=== PATIENT | female | born 1990 | race Caucasian/White ===

== ENCOUNTER 2017-11-03 09:28 | Emergency (ER) | payer MEDICAID ==
[2017-11-03 09:35] VITALS: BP 120/64
[2017-11-03] MEDS ORDERED: NORMAL SALINE 1000 ML 1,000 ML IV ONE (09:46)
--- NOTE | 2017-11-03 09:50 | ER Document Report ---
ED Medical Screen (RME) - General Chief Complaint: Anxiety Stated Complaint: NAUSEA,VOMITING,DIARRHEA Time Seen by Provider: 11/03/17 09:46 Mode of Arrival: Ambulatory Information source: Patient TRAVEL OUTSIDE OF THE U[place] IN LAST 30 DAYS: No - HPI Patient complains to provider of: anxiety, CP Onset: Other - pt states she has been having CP, anxiety, N/V/D for the past several days - Related Data Allergies/Adverse Reactions: No Known Allergies Allergy (Verified 11/03/17 09:29) Past Medical History Psychiatric Medical History: Reports: Hx Anxiety - on meds, Hx Depression - on meds - Immunizations Hx Diphtheria, Pertussis, Tetanus Vaccination: Yes - 07/2015 Physical Exam - Vital signs Vitals: Temp Pulse Resp BP Pulse Ox 98.9 F 78 20 120/64 100 11/03/17 09:34 11/03/17 09:34 11/03/17 09:34 11/03/17 09:34 11/03/17 09:34 Course - Vital Signs Vital signs: Temp Pulse Resp BP Pulse Ox 98.9 F 78 20 120/64 100 11/03/17 09:34 11/03/17 09:34 11/03/17 09:34 11/03/17 09:34 11/03/17 09:34 Doctor's Discharge - Discharge Instructions: Anxiety ([facility])
[2017-11-03 10:39] LABS: APPEARANCE,URINE SLIGHTLY-CLOUDY; BILIRUBIN,URINE NEGATIVE (NEGATIVE); COLOR,URINE YELLOW; GLUCOSE, URINE NEGATIVE (NEGATIVE); KETONES,URINE TRACE mg/dL (NEGATIVE); LEUKOCYTE ESTERASE,URINE SMALL (NEGATIVE); NITRITE,URINE NEGATIVE (NEGATIVE); PROTEIN,URINE NEGATIVE (NEGATIVE); URINE SPECIFIC GRAVITY 1.009; UROBILINOGEN,URINE NEGATIVE mg/dL (<2.0)
[2017-11-03 11:15] LABS: ABSOLUTE BASOPHILS # (AUTO) 0.1 10^3/uL (0.0-0.2); ABSOLUTE LYMPHOCYTES (AUTO) 2.1 10^3/uL (0.5-4.7); ABSOLUTE MONOCYTES (AUTO) 0.6 10^3/uL (0.1-1.4); ABSOLUTE NEUT (AUTO) 8.1 10^3/uL (1.7-8.2); BASOPHILS % (AUTO) 0.5 % (0-2); EOSINOPHILS % (AUTO) 0.1 % (0-6); HEMATOCRIT 40.6 % (36.0-47.0); HEMOGLOBIN 13.7 g/dL (12.0-15.5); LYMPHOCYTES % (AUTO) 19.6 % (13-45); MEAN CORPUSCULAR HGB CONC 33.8 g/dL (32.0-36.0); MEAN CORPUSCULAR VOLUME 95 fl (80-97); MONOCYTES % (AUTO) 5.5 % (3-13); PLATELET COUNT 171 10^3/uL (150-450); RED BLOOD COUNT 4.29 10^6/uL (3.72-5.28); RED CELL DISTRIBUTION WIDTH 12.7 % (11.5-14.0); SEGMENTED NEUTROPHILS % (AUTO) 74.3 % (42-78); TOTAL CELLS COUNTED % (AUTO) 100 %; WHITE BLOOD COUNT 10.8 10^3/uL (4.0-10.5)
[2017-11-03 11:41] LABS: ALANINE AMINOTRANSFERASE 30 U/L (9-52); ALBUMIN 4.8 g/dL (3.5-5.0); ALKALINE PHOSPHATASE 65 U/L (38-126); ANION GAP 10 (5-19); ASPARTATE AMINO TRANSFERASE 23 U/L (14-36); BILIRUBIN,DIRECT 0.3 mg/dL (0.0-0.4); BILIRUBIN,TOTAL 0.5 mg/dL (0.2-1.3); BLOOD UREA NITROGEN 6 mg/dL (7-20); CALCIUM 10.2 mg/dL (8.4-10.2); CARBON DIOXIDE 25 mmol/L (22-30); CHLORIDE 107 mmol/L (98-107); CREATINE KINASE 46 U/L (30-135); CREATINE KINASE MB < 0.22 ng/mL (<4.55); GLUCOSE 86 mg/dL (75-110); POTASSIUM 3.9 mmol/L (3.6-5.0); SODIUM 142.4 mmol/L (137-145); TROPONIN I < 0.012 ng/mL
[2017-11-03] MEDS ORDERED: CLONAZEPAM 1 MG TABLET PO ONE (13:27)
--- NOTE | 2017-11-03 13:29 | ER Document Report ---
ED General <CAMILA SPAULDING - Last Filed: 11/03/17 17:01> - General Mode of Arrival: Ambulatory Information source: Patient, Relative TRAVEL OUTSIDE OF THE [place].S. IN LAST 30 DAYS: No <AISSATOUMAYELIN - Last Filed: 11/03/17 17:24> - General Chief Complaint: Anxiety Stated Complaint: NAUSEA,VOMITING,DIARRHEA Time Seen by Provider: 11/03/17 09:46 - HPI Notes: 27-year-old female with a history of anxiety and depression presents today with complaints of chest pain, shortness of breath, insomnia, anorexia over the last 2 nights. Patient recently took herself off Lexapro approximately 4 weeks ago. Patient also stopped taking her tramadol. Patient is managed by Dr. Shermna, psychiatrist, patient states she has not been seen by him for approximately 6 months. Patient states she has been taking her Klonopin, has been refilling prescription that Dr. Sherman gave her to manage some of her anxiety. Denies any dizziness, lightheadedness, blurred vision, double vision, loss of vision. Denies any vomiting, diarrhea. Denies any pelvic or vaginal pain. Denies any fevers or chills. Patient stopped taking her Lexapro because she "wanted to stop regulating my life around pills". Denies any homicidal or suicidal ideation. Patient states she is unable to get into psychiatry for another month and a half. Denies any acute stressors in life. Non-smoker. Denies any illicit drug use. Patient denies drinking at this time. (MAYELIN REYEZ) - Related Data Allergies/Adverse Reactions: No Known Allergies Allergy (Verified 11/03/17 09:29) Past Medical History - General Information source: Patient - Social History Smoking Status: Former Smoker Frequency of alcohol use: None Drug Abuse: None Family History: None, Reviewed & Not Pertinent Patient has suicidal ideation: No - Pt states she has been having thoughts but does not want to kill herself Patient has homicidal ideation: No Renal/ Medical History: Denies: Hx Peritoneal Dialysis Psychiatric Medical History: Reports: Hx Anxiety - on meds, Hx Depression - - Immunizations Hx Diphtheria, Pertussis, Tetanus Vaccination: Yes - 07/2015 <MAYELIN REYEZ - Last Filed: 11/03/17 17:24> Review of Systems - Review of Systems Constitutional: No symptoms reported EENT: No symptoms reported Cardiovascular: See HPI Respiratory: No symptoms reported Gastrointestinal: No symptoms reported Genitourinary: No symptoms reported Female Genitourinary: No symptoms reported Musculoskeletal: No symptoms reported Skin: No symptoms reported Hematologic/Lymphatic: No symptoms reported Neurological/Psychological: See HPI <MAYELIN REYEZ - Last Filed: 11/03/17 17:24> Physical Exam <SPAULDINGCAMILA - Last Filed: 11/03/17 17:01> - Vital signs Interpretation: Normal <MAYELIN REYEZ - Last Filed: 11/03/17 17:24> - Vital signs Vitals: Temp Pulse Resp BP Pulse Ox 98.9 F 78 20 120/64 100 11/03/17 09:34 11/03/17 09:34 11/03/17 09:34 11/03/17 09:34 11/03/17 09:34 - Notes Notes: PHYSICAL EXAMINATION: GENERAL: Well-appearing, well-nourished and in no acute distress. HEAD: Atraumatic, normocephalic. EYES: Pupils equal round and reactive to light, extraocular movements intact, conjunctiva are normal. ENT: Nares patent, oropharynx clear without exudates. Moist mucous membranes. NECK: Normal range of motion, supple without lymphadenopathy LUNGS: Breath sounds clear to auscultation bilaterally and equal. No wheezes rales or rhonchi. HEART: Regular rate and rhythm without murmurs ABDOMEN: Soft, nontender, nondistended abdomen. No guarding, no rebound. No masses appreciated. Female : deferred Musculoskeletal: Normal range of motion, no pitting or edema. No cyanosis. NEUROLOGICAL: Cranial nerves grossly intact. Normal speech, normal gait. Normal sensory, motor exams PSYCH: Normal mood, normal affect. SKIN: Warm, Dry, normal turgor, no rashes or lesions noted. (MAYELIN REYEZ) Course - Laboratory Result Diagrams: 11/03/17 10:58 11/03/17 10:58 <SPAULDINGCAMILA - Last Filed: 11/03/17 17:01> - Laboratory Result Diagrams: 11/03/17 10:58 11/03/17 10:58 <AISSATOUMAYELIN DAN Yves - Last Filed: 11/03/17 17:24> - Re-evaluation Re-evalutation: 11/03/17 17:21 Laboratory findings were unremarkable, EKG shows non-STEMI. Chest x-ray negative for any acute findings. Will send urine for culture, urinalysis shows slight leukocytosis. Boy Spaulding, with mental health team, at bedside to speak with patient. Boy was able to speak with Dr. Son, psychiatrist on- call, to discuss case. Behavioral health team recommended changing patient to BuSpar 10 mg twice daily and Celexa 20 mg every day. Discussed this with patient, she states she is okay taking his medication. Advised her that she needs to follow-up with [facility] which is the walk-in center for mental health services. Patient feels that she is stable on a can of to go home. All questions and concerns were answered by this provider. Advised to return to the emergency room if symptoms become worse. Patient advised to stop taking tramadol as well as Klonopin while taking these new medications. Patient verbalized understanding and agreed with plan of care. Patient was discharged home. (MAYELIN REYEZ) - Vital Signs Vital signs: Temp Pulse Resp BP Pulse Ox 98.9 F 78 20 120/64 100 11/03/17 09:34 11/03/17 09:34 11/03/17 09:34 11/03/17 09:34 11/03/17 09:34 - Laboratory Laboratory results interpreted by me: 11/03/17 11/03/17 11/03/17 10:10 10:58 10:58 WBC 10.8 H BUN 6 L Urine Ketones TRACE H Urine Blood LARGE H Ur Leukocyte Esterase SMALL H Discharge <CAMILA SPAULDING - Last Filed: 11/03/17 17:01> <MAYELIN REYEZ - Last Filed: 11/03/17 17:24> - Discharge Clinical Impression: Anxiety Condition: Good Disposition: HOME, SELF-CARE Instructions: Anxiety ([facility]) Additional Instructions: Anxiety The physician feels that some of your health problems are being caused by anxiety. Anxiety affects your health in many ways. Anxiety alone can cause palpitations, sweats, chest pains, abdominal pains, shortness of breath, and headaches. It contributes to ulcer disease, high blood pressure, irritable bowel syndrome, and has been shown to cause flare-ups of many other diseases. Anxiety is not a simple disorder to treat. If the anxiety is due to recent life stresses, you may simply need time to "work through" the changes. If the anxiety is due to an underlying unhappiness with yourself or due to psychiatric disturbance, professional help will be needed. Your physician can refer you for further help if needed. Anti-anxiety medication is occasionally given if the stress is acute or if you are having trouble sleeping. Chronic or frequent use of these medications is not a good idea because the body becomes reliant on it, preventing you from dealing with life's normal stresses. You have been prescribed medications as follows Celexa 20 mg daily BuSpar 10 mg twice daily Please take as prescribed. AT ANY TIME, IF YOUR SYMPTOMS CHANGE SIGNIFICANTLY OR WORSEN OR YOU DEVELOP NEW SYMPTOMS, RETURN TO THE EMERGENCY DEPARTMENT IMMEDIATELY FOR RE-EVALUATION. Prescriptions: Buspirone HCl [Buspar 10 mg Tablet] 10 mg PO BID #20 tablet Citalopram Hydrobromide [Celexa 20 mg Tablet] 20 mg PO DAILY #10 tablet Referrals: [facility] [Outside] - 11/04/17 8:00 am
--- NOTE | 2017-11-03 15:57 | PSYCHOLOGICAL NOTE ---
Psych Note - Psych Note Psych Note: Reason for consult: anxiety Consent permissions: significant other at bedside per patient request patient reports she was recently diagnosed with post depression and has been taking several medications for diagnosis. states last taken medication last week. reports has had several panic attacks with feelings of shortness of breath. states has also felt nauseated. Patient disclosed that she stopped taking her lexapro in September and her Tramadol last Wednesday (10/26/2017). She reports increase in anxiety, depression and insomnia. Patient states that she has not been eating and feels sick to her stomach all the time. Patient denies any increase in psychosocial stressors. Patient's outpatient provider is Dr. Sherman with [facility]. Patient denies any inpatient psychiatric treatment. Patient disclosed that she was concerned she was taking her tramadol to much (3-4 times a day instead of 1-2 times a day) and wants to stop taking any addictive medications. Patient is alert and orientated to person, place, time and circumstance. Mood is anxious with psychomotor agitation and tearful affect. Patient denies suicidal and homicidal ideation. Delusions are absent behaviors congruent with intact reality based presentation i.e. organized, linear, rational thinking. Eye contact was well-maintained. Conversational speech was within normal rate, tone and prosody. Intellectual abilities appear to be within the average range. Attention and concentration are fair. Insight, judgment, impulse control are good. Behavior health team contacted [facility]. Patient is established with that provider; however, once a year patients must see a therapist. Patient is coming up on her yearly review which requires this visit with a therapist. After patient completes that she will be able to see Dr. Sherman. 311 (F32.9) unspecified depressive disorder per history provided by patient 300.00 (F41.9) unspecified anxiety disorder per history provided by patient Impression\plan: Patient is considered psychiatrically clear. Patient does not meet IVC criteria per [place] GS 122C. Patient arrived to [facility] ED for assistance with anxiety. Patient attempted to stop taking her medications because of concerns of using her tramadol too much. Patient is visibly anxious with psychomotor agitation and tearful affect. Clinician engaged patient in deep breathing and visualization exercises. Patient is recommended to continue services with outpatient mental health provider, [facility]. Patient and clinician discussed outpatient procedure with [facility] incorporating seeing a therapist once a year which is being requested of the patient currently before she can see Dr. Sherman. Behavioral health team provided recommendations for medications to assist the patient in not taking any controlled substances per patient's request. Patient states she is unsure which PCM she has been assigned now that [facility] with [facility] but states she will look into that.
== END 2017-11-03 17:10 | disposition home or self-care (01) ==
LOC: ER 09:28
DX: F41.9 Anxiety disorder, unspecified (principal); T43.226A Underdosing of selective serotonin reuptake inhibitors, initial encounter; Z91.128 Patient's intentional underdosing of medication regimen for other reason; Z91.14 Patient's other noncompliance with medication regimen; R07.9 Chest pain, unspecified; R06.02 Shortness of breath; R63.0 Anorexia; G47.00 Insomnia, unspecified; Z79.899 Other long term (current) drug therapy; Z87.891 Personal history of nicotine dependence
CPT/HCPCS: 99284; 96360; 36415; 82553; 82550; 85025; 81025; 80053; 81001; 84484; J3490; J7030

== ENCOUNTER 2017-11-21 08:03 | Emergency (ER) | payer MEDICAID ==
[2017-11-21 09:26] LABS: ABSOLUTE LYMPHOCYTES (AUTO) 1.5 10^3/uL (0.5-4.7); ABSOLUTE MONOCYTES (AUTO) 0.7 10^3/uL (0.1-1.4); ABSOLUTE NEUT (AUTO) 9.6 10^3/uL (1.7-8.2); BASOPHILS % (AUTO) 0.2 % (0-2); EOSINOPHILS % (AUTO) 0.3 % (0-6); HEMATOCRIT 43.3 % (36.0-47.0); HEMOGLOBIN 14.6 g/dL (12.0-15.5); LYMPHOCYTES % (AUTO) 12.7 % (13-45); MEAN CORPUSCULAR HEMOGLOBIN 32.9 pg (27.0-33.4); MEAN CORPUSCULAR HGB CONC 33.7 g/dL (32.0-36.0); MEAN CORPUSCULAR VOLUME 98 fl (80-97); MONOCYTES % (AUTO) 6.2 % (3-13); PLATELET COUNT 161 10^3/uL (150-450); RED BLOOD COUNT 4.44 10^6/uL (3.72-5.28); RED CELL DISTRIBUTION WIDTH 13.3 % (11.5-14.0); SEGMENTED NEUTROPHILS % (AUTO) 80.6 % (42-78); TOTAL CELLS COUNTED % (AUTO) 100 %; WHITE BLOOD COUNT 11.8 10^3/uL (4.0-10.5)
[2017-11-21 09:29] LABS: APPEARANCE,URINE CLEAR; BILIRUBIN,URINE NEGATIVE (NEGATIVE); COLOR,URINE STRAW; GLUCOSE, URINE NEGATIVE (NEGATIVE); KETONES,URINE NEGATIVE (NEGATIVE); LEUKOCYTE ESTERASE,URINE NEGATIVE (NEGATIVE); NITRITE,URINE NEGATIVE (NEGATIVE); PROTEIN,URINE NEGATIVE (NEGATIVE); URINE SPECIFIC GRAVITY 1.002; UROBILINOGEN,URINE NEGATIVE mg/dL (<2.0)
[2017-11-21 09:37] LABS: URINE AMPHETAMINES SCREEN NEGATIVE; URINE BARBITURATES SCREEN NEGATIVE; URINE BENZODIAZEPINES SCREEN NEGATIVE; URINE COCAINE SCREEN NEGATIVE; URINE MARIJUANA (THC) SCREEN NEGATIVE; URINE METHADONE SCREEN NEGATIVE; URINE PHENCYCLIDINE SCREEN NEGATIVE
[2017-11-21 09:46] LABS: ALANINE AMINOTRANSFERASE 35 U/L (9-52); ALBUMIN 4.9 g/dL (3.5-5.0); ALKALINE PHOSPHATASE 62 U/L (38-126); ANION GAP 13 (5-19); ASPARTATE AMINO TRANSFERASE 21 U/L (14-36); BILIRUBIN,DIRECT 0.3 mg/dL (0.0-0.4); BILIRUBIN,TOTAL 0.6 mg/dL (0.2-1.3); BLOOD UREA NITROGEN 9 mg/dL (7-20); CALCIUM 10.1 mg/dL (8.4-10.2); CARBON DIOXIDE 27 mmol/L (22-30); CHLORIDE 104 mmol/L (98-107); GLUCOSE 94 mg/dL (75-110); POTASSIUM 3.8 mmol/L (3.6-5.0); TOTAL PROTEIN 8.1 g/dL (6.3-8.2)
[2017-11-21 10:14] LABS: FREE T4 (FREE THYROXINE) 1.3 ng/dL (0.78-2.19)
[2017-11-21 10:28] LABS: THYROID STIMULATING HORMONE 0.32 uIU/mL (0.47-4.68)
--- NOTE | 2017-11-21 11:41 | ER Document Report ---
ED General <BJORN NICHOLS - Last Filed: 11/21/17 12:01> - General TRAVEL OUTSIDE OF THE [place] IN LAST 30 DAYS: No - HPI Patient complains to provider of: Anxiety <OLIVIA LIEBERMAN - Last Filed: 11/21/17 14:04> - General Chief Complaint: Psych Problem Stated Complaint: ANXIETY Time Seen by Provider: 11/21/17 08:53 - HPI Notes: Patient with a history of PTSD anxiety and depression recently discharged from [facility]. Patient states was started on 6 new psychiatric medications however at this time did not seem to be controlling her anxiety. Patient states he does have a history of anxiety and past being on multiple medication regimens. Patient states she was on Ativan at [facility] 2 mg however was discharged home on 1 mg. Patient states she does not think this is helping. Patient also states one time she was on tramadol for anxiety however became addicted to that medication. Patient otherwise denies any HI or SI. Patient is tearful upon my evaluation. (OLIVIA LIEBERMAN) - Related Data Allergies/Adverse Reactions: No Known Allergies Allergy (Verified 11/21/17 08:07) Past Medical History - Social History Smoking Status: Unknown if Ever Smoked Frequency of alcohol use: None Drug Abuse: None Family History: None, Reviewed & Not Pertinent Patient has suicidal ideation: No Patient has homicidal ideation: No Renal/ Medical History: Denies: Hx Peritoneal Dialysis Psychiatric Medical History: Reports: Hx Anxiety - on meds, Hx Depression - , anxiety, PTSD - Immunizations Hx Diphtheria, Pertussis, Tetanus Vaccination: Yes - 07/2015 <OLIVIA LIEBERMAN - Last Filed: 11/21/17 14:04> Review of Systems - Review of Systems Constitutional: No symptoms reported EENT: No symptoms reported Cardiovascular: No symptoms reported Respiratory: No symptoms reported Gastrointestinal: No symptoms reported Genitourinary: No symptoms reported Female Genitourinary: No symptoms reported Musculoskeletal: No symptoms reported Skin: No symptoms reported Hematologic/Lymphatic: No symptoms reported Neurological/Psychological: Anxiety -: Yes All other systems reviewed and negative <OLIVIA LIEBERMAN - Last Filed: 11/21/17 14:04> Physical Exam - Vital signs Interpretation: Normal - General General appearance: Appears well, Alert - HEENT Head: Normocephalic, Atraumatic Eyes: Normal Pupils: PERRL - Respiratory Respiratory status: No respiratory distress Chest status: Nontender Breath sounds: Normal Chest palpation: Normal - Cardiovascular Rhythm: Regular Heart sounds: Normal auscultation Murmur: No - Abdominal Inspection: Normal Distension: No distension Bowel sounds: Normal Tenderness: Nontender Organomegaly: No organomegaly - Back Back: Normal, Nontender - Extremities General upper extremity: Normal inspection, Nontender, Normal color, Normal ROM , Normal temperature General lower extremity: Normal inspection, Nontender, Normal color, Normal ROM , Normal temperature, Normal weight bearing. No: Sara's sign - Neurological Neuro grossly intact: Yes Cognition: Normal Orientation: AAOx4 Katherine Coma Scale Eye Opening: Spontaneous Katherine Coma Scale Verbal: Oriented Katherine Coma Scale Motor: Obeys Commands [place] Coma Scale Total: 15 Speech: Normal Motor strength normal: LUE, RUE, LLE, RLE Sensory: Normal - Psychological Associated symptoms: Anxious, Tearful - Skin Skin Temperature: Warm Skin Moisture: Dry Skin Color: Normal <OLIVIA LIEBERMAN - Last Filed: 11/21/17 14:04> - Vital signs Vitals: Temp Pulse Resp BP Pulse Ox 98.8 F 107 H 22 H 134/85 H 100 11/21/17 08:07 11/21/17 08:07 11/21/17 08:07 11/21/17 08:07 11/21/17 08:07 Course - Laboratory Result Diagrams: 11/21/17 09:10 11/21/17 09:10 <BJORN NICHOLS - Last Filed: 11/21/17 12:01> - Laboratory Result Diagrams: 11/21/17 09:10 11/21/17 09:10 <OLIVIA LIEBERMAN - Last Filed: 11/21/17 14:04> - Re-evaluation Re-evalutation: 11/21/17 14:03 Patient was slightly low TSH. Otherwise laboratory values not reveal any critical etiology. Reviewed by mental health team recommending changes to her medications stopping Ativan gabapentin. I will put the patient on her Effexor twice daily and BuSpar twice daily. Patient has an appointment follow-up with [facility] psychiatric services tomorrow. Patient was encouraged to keep this appointment. Otherwise looks stable for discharge. (OLIVIA LIEBERMAN) - Vital Signs Vital signs: Temp Pulse Resp BP Pulse Ox 99.2 F 96 16 114/74 99 11/21/17 12:36 11/21/17 12:36 11/21/17 12:36 11/21/17 12:36 11/21/17 12:36 - Laboratory Laboratory results interpreted by me: 11/21/17 11/21/17 11/21/17 08:12 09:10 09:10 WBC 11.8 H MCV 98 H Seg Neutrophils % 80.6 H Lymphocytes % 12.7 L Absolute Neutrophils 9.6 H TSH 0.32 L Urine Blood SMALL H Discharge <BJORN NICHOLS - Last Filed: 11/21/17 12:01> <LUISANAOLIVIA SOTOMAYOR - Last Filed: 11/21/17 14:04> - Discharge Clinical Impression: Anxiety Condition: Stable Disposition: HOME, SELF-CARE Additional Instructions: Anxiety The physician feels that some of your health problems are being caused by anxiety. Anxiety affects your health in many ways. Anxiety alone can cause palpitations, sweats, chest pains, abdominal pains, shortness of breath, and headaches. It contributes to ulcer disease, high blood pressure, irritable bowel syndrome, and has been shown to cause flare-ups of many other diseases. Anxiety is not a simple disorder to treat. If the anxiety is due to recent life stresses, you may simply need time to "work through" the changes. If the anxiety is due to an underlying unhappiness with yourself or due to psychiatric disturbance, professional help will be needed. Your physician can refer you for further help if needed. Anti-anxiety medication is occasionally given if the stress is acute or if you are having trouble sleeping. Chronic or frequent use of these medications is not a good idea because the body becomes reliant on it, preventing you from dealing with life's normal stresses. Follow-up: You have been provided scripts and medication adjustments. Please stop your Ativan and gabapentin and Ambien. You should adhere to these as directed until seen by an outpatient medication provider.. You should contact Leticia from [facility] upon discharge since they are involved with your care. You should follow- up with [facility] as a walk in tomorrow in order to re-establish services and care. If your symptoms persist or worsen you should consult with your physician, return to the emergency department or contact [facility]. Your thyroid-stimulating hormone was slightly low today. Do not think he needs treatment at this time but will discuss this with primary care physician. Prescriptions: Buspirone HCl [Buspar 10 mg Tablet] 10 mg PO BID #20 tab Venlafaxine HCl ER [Effexor Xr 37.5 mg Cap.sr] 37.5 mg PO BID #20 cap.sr.24h Referrals: RAGHAVENDRA LEONG MD [Primary Care Provider] - Follow up as needed [facility] [Outside] - 11/21/17 12:30 pm [facility] [Outside] - 11/22/17 8:00 am
[2017-11-21] MEDS ORDERED: VENLAFAXINE HCL 37.5 MG CAP.SR.24H PO ONE (11:43)
[2017-11-21] MEDS ORDERED: BUSPIRONE HCL 10 MG TABLET PO ONE (11:57)
[2017-11-21 12:39] VITALS: BP 114/74
--- NOTE | 2017-11-21 17:09 | PSYCHOLOGICAL NOTE ---
Psych Note - Psych Note Psych Note: Reason for consult: Anxiety, Medication not effective Contact Permission: Boyfriend at bedside Patient is a 27 year old female who presented to the ED today via boyfriend for unmanaged anxiety and concerns her prescribed medications are not effective. She acknowledged she was discharged from a voluntary inpatient stay with the help of [facility] at [facility] on Wednesday, for anxiety and panic attacks, duration was 6 days. She stated she felt good at discharge but once home it was "overwhelming and things were distorted." She stated the [facility] worker visited yesterday and patient informed her how she felt. She described hypersensitivity to senses such as having to unplug sentsy things in the home because the smell was so potent or the [place] looking like they were rougher than they actually were. She stated [facility] prescribed her with Effexor XR 37.5MG QD for 2 days and then the last 5 days it was 75MG QD with the exception of this morning (stated she did not take it because she wasn't sure if it was making her feel the way she was), Ativan 1MG QD, Vistaril 50MG QHS, Ambien 10MG QHS, and Gabapentin 100MG TID ( she said for anxiety and Effexor side effects). She described and had written down on a piece of paper the following side effects: heaviness in chest, sweaty at night, dry mouth, teeth hurt, urinating frequently, diarrhea often in the AM , vivid colors, afraid of being alone (not for SI but just scared), feeling overstimulated, bad headaches, feeling cold, hands and limbs feeling tingly, hands shaky (observed this), dilated pupils, and increased anxiety. She noted she previously went to [facility] for outpatient services and is supposed to follow up as a walk in tomorrow. She noted previous medication regimen of Lexapro, Klonopin and Tramadol (all of 2017 after having second child and [facility] made a referral, 2013 for about a year). She admitted to overuse of the Tramadol (supposed to take 102 but would take 3-4). She denied current SI and said "I cannot calm down." Patient was alert and oriented to person, place, time and situation. Mood was anxious with congruent affect. She denied current SI/HI. She did not appear to be responding to internal stimuli AEB fair eye contact, staying on topic and carrying on dialogue conversation. Thought processes were linear. Conversational speech was quick in rate but not pressured and WNL for tone and prosody. Intellectual abilities are estimated to be average. Insight, judgment and impulse control were fair AEB being overwhelmed and seeking help. Patient's boyfriend who was in the room during the evaluation confirmed patient had been on Lexapro, Klonopin and Tramadol in 2017 until about Debra then she stopped. He stated "she abused her Tramadol, run out of refills and freak out." Medication recommendations made by the [facility] psychiatric medical provider, Dr. Shawna MD, include: 1. Change Effexor from 75MG PO QD to 37.5MG PO BID 2. Continue Vistaril 50MG PO QHS PRN sleep 3. Discontinue Ativan 1MG PO QD 4. Discontinue Gabapentin 100MG PO TID 5. Discontinue Ambien 10MG PO QHS 6. Add Buspar 10MG PO BID Diagnosis: 300.00 (F41.9) Unspecified Anxiety Disorder Impression/Plan: Patient is psychiatrically cleared. She does not meet [place] S. 122C IVC criteria. She denied SI/HI and no observed psychosis. Provided psycho- education on the importance of medication management and therapy in dealing with anxiety type disorders. Described "Thought Blocking" or diverting attention away from anxiety. Explained these are difficult tasks that require guidance from professional, practice and repetition which is where the therapy is needed. Encouraged boyfriend to aid patient in trying to redirect attention. Patient stated Leticia from [facility] had already called her to check in on her and patient is to contact her when she is discharged. Patient said she would and had the postcard for [facility]. Provided patient with the outpatient resource sheet with emphasis on and POrt. Encouraged her to do the walk in at [facility] because she will likely have to to the intake process all over again. Consulted with Dr. Sherman regarding the management and care of patient. ED Physician in agreement with recommendation.
--- NOTE | 2017-11-21 18:35 | EKG REPORT ---
SEVERITY:- ABNORMAL ECG - SINUS RHYTHM LEFT AXIS DEVIATION : Confirmed by: Kathy Givens 21-Nov-2017 18:33:31
== END 2017-11-21 12:39 | disposition home or self-care (01) ==
LOC: ER 08:03
DX: F41.9 Anxiety disorder, unspecified (principal)
CPT/HCPCS: 93005; 99284; 36415; 84439; 84443; 85025; 81025; 80053; 81001; 80307; 93010; J3490 ×2